=== PATIENT | male | born 1955 | race Caucasian/White ===

== ENCOUNTER → 2020-02-17 16:39 | Outpatient (CLI) | payer OTHER, SELFPAY ==
--- NOTE | 2020-02-17 16:42 | DI.RAD.S_ITS ---
PROCEDURE: XR FINGER LT MIN 2V INDICATIONS: finger laceration TECHNIQUE: AP hand, 2 views of the 2nd finger(s) acquired. COMPARISON: None. FINDINGS: Study is limited by overlying bandaging material. Bones: No fractures or dislocations. No suspicious bony lesions. Age-appropriate bony degenerative changes are seen. Soft tissues: Soft tissue swelling is seen. No radiopaque foreign bodies are seen. IMPRESSION: No definite acute fractures are seen. Soft tissue swelling with bandaging material. Dictated by: Hari Faith M.D. on 02/17/2020 at 16:04 Approved by: Hari Faith M.D. on 02/17/2020 at 16:05
== END ==
PROVIDERS: Family Provider Internal Medicine; PCP Internal Medicine; Referring Provider Physician Assistant; Visit Provider Physician Assistant
DX: S61.251A Open bite of left index finger without damage to nail, initial encounter (principal); W54.0XXA Bitten by dog, initial encounter
CPT/HCPCS: 73140